=== PATIENT | male | born 1990 | race Caucasian/White ===

== ENCOUNTER 2016-05-29 19:53 | Emergency (ER) | payer SELFPAY ==
[2016-05-29 20:14] VITALS: BP 126/60
[2016-05-29] MEDS ORDERED: SULF5DRO EACHEYE (21:05)
--- NOTE | 2016-05-29 21:05 | PHYS DOC ---
Past Medical History Past Medical History: No Pertinent History Past Surgical History: No Surgical History Additional Information: Nonsmoker Alcohol Use: Occasionally Drug Use: Marijuana Adult General Chief Complaint Chief Complaint: EYE PROBLEMS HPI HPI Patient is a 25 year old male who presents with bilateral eye irritation starting today. He reports that both eyes are red and they were matted this morning when he awoke. He is also recently had nasal congestion, sore throat, and productive cough. He denies any vision changes, eye pain, or photophobia with eye irritation. He has not had any ear pain or shortness of breath. Patient denies any injury to his eyes. He does not wear contact lenses. He does not have a PCP. Review of Systems Review of Systems Constitutional: Denies fever or chills. [] Eyes: Denies change in visual acuity or eye pain. Reports bilateral eye redness and drainage. HENT: Denies ear pain. Reports nasal congestion and sore throat. Respiratory: Denies shortness of breath. Reports productive cough. Cardiovascular: Denies chest pain, palpitations or edema. [] GI: Denies abdominal pain, nausea, vomiting, bloody stools or diarrhea. [] Musculoskeletal: Denies back pain or joint pain. [] Integument: Denies rash or skin lesions. [] Neurologic: Denies headache, focal weakness or sensory changes. [] All systems reviewed and negative unless otherwise stated in the HPI. Physical Exam Physical Exam Constitutional: Well developed, well nourished, no acute distress, non-toxic appearance. [] HENT: Normocephalic, atraumatic, bilateral external ears normal, oropharynx moist, no oral exudates, nose normal. Bilateral TMs without erythema or bulging. There is no posterior pharyngeal erythema or tonsillar edema. Bilateral nasal turbinates are swollen and erythematous. Eyes: PERRLA, EOMI. Bilateral conjunctival injection with purulent drainage in both eyes. Neck: Normal range of motion, no tenderness, supple, no stridor. [] Cardiovascular: Heart rate regular rhythm, no murmur [] Lungs & Thorax: Bilateral breath sounds clear to auscultation without wheezes, rales, or rhonchi. Skin: Warm, dry, no erythema, no rash. [] Neurologic: Alert and oriented X 3, normal motor function, normal sensory function, no focal deficits noted. [] Psychologic: Affect normal, judgement normal, mood normal. [] Current Patient Data Vital Signs Vital Signs Date Time Temp Pulse Resp B/P Pulse Ox O2 Delivery O2 Flow Rate FiO2 05/29/16 20:14 97.8 83 12 99 Room Air 0.1 97.8 EKG EKG [] Radiology/Procedures Radiology/Procedures [] Course & Med Decision Making Course & Med Decision Making Pertinent Labs and Imaging studies reviewed. (See chart for details) [] Dragon Disclaimer Dragon Disclaimer This electronic medical record was generated, in whole or in part, using a voice recognition dictation system. Departure Departure Impression: Primary Impression: URI (upper respiratory infection) Additional Impression: Conjunctivitis Disposition: HOME, SELF-CARE Condition: STABLE Referrals: BAUTISTA NAYLOR MD Patient Instructions: Conjunctivitis (Viral and Bacterial), Upper Respiratory Infection, Adult, [id number] Additional Instructions: Please use the prescribed antibiotic eyedrops as directed for one week. Please take Tylenol or Motrin for fever or pain. Drink plenty of water to stay hydrated. Get lots of rest. Please follow-up with a primary care provider if your symptoms continue. Please follow-up with the eye doctor listed below if you have changes in your vision or other problems with your eyes. Return to the emergency department if you have any new or concerning symptoms. Scripts Sulfacetamide Sodium (Bleph-10)5 Ml Drops2 Drop EACHEYE TID 7 Days Prov:LIDIA AG 05/29/16 Problem Qualifiers Primary Impression: URI (upper respiratory infection) URI type: unspecified viral URI Qualified Code: J06.9 - Acute upper respiratory infection, unspecified Additional Impression: Conjunctivitis Conjunctivitis type: acute Acute conjunctivitis type: viral Laterality: bilateral Qualified Code: B30.9 - Viral conjunctivitis, unspecified LIDIA AG May 29, 2016 21:06
== END 2016-05-29 21:35 | disposition home or self-care (01) ==
LOC: ER 19:53
DX: J06.9 Acute upper respiratory infection, unspecified (principal); H10.9 Unspecified conjunctivitis; F12.10 Cannabis abuse, uncomplicated
CPT/HCPCS: 99283

== ENCOUNTER 2018-07-20 22:25 | Emergency (ER) | payer SELFPAY ==
[~2018-07-20] VITALS: Ht 195.6 cm; Wt 90.7 kg
[~2018-07-20 22:25] MED LIST: SULF5DRO EACHEYE
[2018-07-20 22:48] VITALS: BP 132/86
[2018-07-20] MEDS ORDERED: ONDANSETRON PF 4 MG/2 ML VIAL. ONE (22:50)
[2018-07-20] MEDS ORDERED: MORPHINE SULFATE 4 MG/ML VIAL. ONE (22:51)
[2018-07-20] MEDS ORDERED: MORPHINE SULFATE 4 MG/ML VIAL. IV ONE (23:00)
[2018-07-20] MEDS ORDERED: ONDANSETRON PF 4 MG/2 ML VIAL. IV ONE (23:00)
[2018-07-20] MEDS ORDERED: RABIES VIRUS VACC PF 2.5 UNIT / 1 ML VIAL. VAX IM ONE (23:30)
[2018-07-20] MEDS ORDERED: RABIES IMMUNE GLOBULIN PF 150 UNIT/ML 10ML VIAL. VAX IM ONE (23:30)
[2018-07-20] MEDS ORDERED: LIDOCAINE 1% Multi-Dose 20 ML VIAL. INJ ONE (23:30)
[2018-07-21] MEDS ORDERED: MORPHINE SULFATE 4 MG/ML VIAL. IV ONE (00:30)
[2018-07-21] MEDS ORDERED: AMOXICILLIN/K CLAV 875/125MG TABLET. PO ONE (00:30)
--- NOTE | 2018-07-21 01:04 | PHYS DOC ---
Past Medical History Past Medical History: No Pertinent History Past Surgical History: No Surgical History Alcohol Use: Occasionally Drug Use: Marijuana Adult General Chief Complaint Chief Complaint: ANIMAL BITE HPI HPI Patient is a 28 year old male who presents with dog bites to his left leg, hand , and right leg. The left leg is the worst. He has been able to walk on it. Patient is uncertain as to his tetanus status. This was a full-grown dog. Dog is not in anyone's possession. There is no numbness or tingling or pulsatile bleeding. There was no loss of consciousness.[] Review of Systems Review of Systems Constitutional: Denies fever or chills [] Eyes: Denies change in visual acuity, redness, or eye pain [] HENT: Denies nasal congestion or sore throat [] Respiratory: Denies cough or shortness of breath [] Cardiovascular: No chest pain or palpitations[] GI: Denies abdominal pain, nausea, vomiting, bloody stools or diarrhea [] : Denies dysuria or hematuria [] Musculoskeletal: Denies back pain or joint pain [] Integument: Denies rash, see history of present illness[] Neurologic: Denies headache, focal weakness or sensory changes [] Endocrine: Denies polyuria or polydipsia [] All other systems were reviewed and found to be within normal limits, except as documented in this note. Current Medications Current Medications Current Medications Medications (Trade) Dose Ordered Sig/John Start Time Stop Time Status Last Admin Dose Admin Amoxicillin/ Clavulanate Potassium (Augmentin 875/ 125mg) 1 tab 1X ONCE 07/21/18 00:30 07/21/18 00:31 DC Bacitracin 1 jordan 1X ONCE 07/21/18 01:30 07/21/18 01:31 DC Lidocaine HCl (Lidocaine 1% 20ml Vial) 20 ml 1X ONCE 07/21/18 01:30 07/21/18 01:31 DC Morphine Sulfate (Morphine Sulfate) 4 mg 1X ONCE 07/21/18 00:30 07/21/18 00:31 DC 07/21/18 00:15 4 MG Ondansetron HCl (Zofran) 4 mg STK-MED ONCE 07/20/18 22:50 07/20/18 22:51 DC Rabies Immune Globulin (Imogam Rabies) 12 ml ONCE ONCE 07/20/18 23:30 07/20/18 23:31 DC 07/20/18 23:04 12 ML Rabies Vaccine Human Diploid Cell (Imovax Rabies 2.5 Unit / ml) 1 ml ONCE ONCE 07/20/18 23:30 07/20/18 23:31 DC 07/20/18 23:06 1 ML Allergies Allergies Allergies Coded Allergies Type Severity Reaction Last Updated Verified No Known Drug Allergies 07/20/18 No Physical Exam Physical Exam Constitutional: Well developed, well nourished, moderate distress, non-toxic appearance. [] HENT: Normocephalic, atraumatic, bilateral external ears normal, oropharynx moist, no oral exudates, nose normal. [] Eyes: PERRLA, EOMI, conjunctiva normal, no discharge. [] Neck: Normal range of motion, no tenderness, supple, no stridor. [] Cardiovascular:Heart rate regular rhythm, no murmur [] Lungs & Thorax: Bilateral breath sounds clear to auscultation [] Abdomen: Bowel sounds normal, soft, no tenderness, no masses, no pulsatile masses. [] Skin: Warm, dry, no erythema, no rash. Patient's right hand has multiple superficial wounds, none of which are suturable. Patient has full active range of motion of the right hand, FDS, FDP, and extensor mechanisms are intact, patient is distal neurovascularly intact. Patient's right calf has an abrasion, no suturable wound. Patient's left calf lateral aspect has a 7 cm wound with no muscle or bone visible. No visible foreign body. Patient's medial left calf has 2 suturable wounds, the superior is stellate and a proximally 5 cm in size, the inferior was curved an approximately 4 cm in size, neither of the medial wounds had any foreign body nor muscle nor bone visible.[] Back: No tenderness, no CVA tenderness. [] Extremities: No tenderness, no cyanosis, no clubbing, ROM intact, no edema. [] Neurologic: Alert and oriented X 3, normal motor function, normal sensory function, no focal deficits noted. [] Psychologic: Affect normal, judgement normal, mood normal. [] Current Patient Data Vital Signs Vital Signs Date Time Temp Pulse Resp B/P (MAP) Pulse Ox O2 Delivery O2 Flow Rate FiO2 07/21/18 00:15 20 99 Room Air 07/20/18 22:48 98.2 100 132/86 (101) 98.2 EKG EKG [] Radiology/Procedures Radiology/Procedures [] Course & Med Decision Making Course & Med Decision Making Pertinent Labs and Imaging studies reviewed. (See chart for details) ED course and medical decision making: Patient arrived, was placed in bed, in tolerated exam well. Given the dog was not available he was given rabies immunoglobulin as well as rabies vaccine. He was additionally given Augmentin. There is no evidence of a foreign body. No evidence of neuro or vascular compromise. He had the sutures repaired by my nurse practitioner. He was discharged in improved condition.[] Dragon Disclaimer Dragon Disclaimer This electronic medical record was generated, in whole or in part, using a voice recognition dictation system. Departure Departure Impression: Primary Impression: Dog bite Disposition: HOME, SELF-CARE Condition: IMPROVED Referrals: NO PCP (PCP) Patient Instructions: Animal Bite, Rabies Immune Globulin, human RIG solution for injection, Rabies Vaccine suspension for injection, Sutured Wound Care Additional Instructions: Follow-up with your regular doctor in 2 days. If you do not have regular doctor list of local clinics will be provided for you. Sutures out in 10-14 days. Return to the ER if worsening pain, redness, purulent drainage, or any other concerns. You need to complete the rabies vaccine series, the next one is in 3 days on July 24, then on July 28, and August 04 for the last one Scripts Hydrocodone/Apap 5-325 (NORCO 5-325 TABLET) 1 Each Tablet 1-2 EACH PO PRN Q6HRS PRN for SEVERE PAIN, #15 as needed for pain Prov: KRZYSZTOF BRADLEY DO 07/21/18 Meloxicam (MELOXICAM) 7.5 Mg Tablet 7.5 MG PO DAILY, #20 TAB Prov: KRZYSZTOF BRADLEY DO 07/21/18 Amoxicillin/Potassium Clav (AUGMENTIN 875-125 TABLET) 1 Each Tablet 1 TAB PO BID, #20 TAB Prov: KRZYSZTOF BRADLEY DO 07/21/18 Laceration Repair Lac Repair Indication: [] Procedure: The patient was placed in the appropriate position and anesthesia around the superior medial wound 1% lidocaine, 6 mL. the area was then irrigated. The laceration was closed with 7 simple interrupted sutures, 3-0 Ethilon. Inferior medial LAC was anesthetized with 1% lidocaine, 6 mL. This laceration was closed with 3, 3-0 Ethilon simple interrupted sutures. The wound on the lateral aspect of the left calf was anesthetized with 1% lidocaine, 13 mL. The wound was irrigated. It was then closed with 3-0 Ethilon simple interrupted sutures, #13. The wound area was then dressed with bacitracin and nonadherent dressings. Total repaired wound length: 16 cm among the 3 wounds. Other Items: [OTHER ITEMS] The patient tolerated the procedure well. Hemostasis was achieved. Complications: None. Problem Qualifiers Primary Impression: Dog bite Encounter type: initial encounter Qualified Codes: W54.0XXA - Bitten by dog , initial encounter KRZYSZTOF BRADLEY DO Jul 21, 2018 01:04
[2018-07-21] MEDS ORDERED: BACITRACIN TOPICAL OINT 14GM TUBE. TP ONE (01:30)
[2018-07-21] MEDS ORDERED: LIDOCAINE 1% Multi-Dose 20 ML VIAL. INJ ONE (01:30)
[2018-07-21] MEDS ORDERED: MELO7.5T29 PO (02:08)
[2018-07-21] MEDS ORDERED: AMOX1TAB61 PO (02:08)
[2018-07-21] MEDS ORDERED: HYDR-3164 PO (02:08)
== END 2018-07-21 02:20 | disposition home or self-care (01) ==
LOC: ER 22:25
DX: S81.812A Laceration without foreign body, left lower leg, initial encounter (principal); S80.811A Abrasion, right lower leg, initial encounter; W54.0XXA Bitten by dog, initial encounter; Y93.89 Activity, other specified; Y92.89 Other specified places as the place of occurrence of the external cause; Y99.8 Other external cause status
CPT/HCPCS: 12005; 90375; 90471; 90675; 96372; 96374; 96375; 96376; 99284; J2270; J2405; 99283

== ENCOUNTER 2018-08-06 11:41 | Emergency (ER) | payer SELFPAY ==
[~2018-08-06] VITALS: Ht 193 cm; Wt 93.0 kg
[~2018-08-06 11:41] MED LIST changes: +AMOX1TAB61 PO; +HYDR-3164 PO; +MELO7.5T29 PO
[2018-08-06 13:02] VITALS: BP 122/60
--- NOTE | 2018-08-06 14:59 | PHYS DOC ---
Past Medical History Past Medical History: No Pertinent History Past Surgical History: No Surgical History Alcohol Use: Occasionally Drug Use: Marijuana Adult General Chief Complaint Chief Complaint: SUTURE/STAPLE REMOVAL HPI HPI Patient is a 28 year old [male here for suture removal from a dog bite 2 weeks ago Allergies Allergies Allergies Coded Allergies Type Severity Reaction Last Updated Verified No Known Drug Allergies 08/06/18 No Physical Exam Physical Exam Constitutional: Well developed, well nourished, no acute distress, non-toxic appearance. [] HENT: Normocephalic, atraumatic, bilateral external ears normal, oropharynx moist, no oral exudates, nose normal. [] ] Skin: 2 healed lacerations on the leg sutures in place some scabbing noted overlying Extremities: No tenderness, no cyanosis, no clubbing, ROM intact, no edema. [] Neurologic: Alert and oriented X 3, normal motor function, normal sensory function, no focal deficits noted. [] Psychologic: Affect normal, judgement normal, mood normal. [] Current Patient Data Vital Signs Vital Signs Date Time Temp Pulse Resp B/P (MAP) Pulse Ox O2 Delivery O2 Flow Rate FiO2 08/06/18 13:02 97.9 56 16 122/60 (80) 100 Room Air 97.9 EKG EKG [] Radiology/Procedures Radiology/Procedures [] Course & Med Decision Making Course & Med Decision Making Pertinent Labs and Imaging studies reviewed. (See chart for details) []sutures removed by 4 lara no comlpications 20 were removed. pt reassured [place] Disclaimer Dragon Disclaimer This electronic medical record was generated, in whole or in part, using a voice recognition dictation system. Departure Departure Impression: Primary Impression: Visit for suture removal Disposition: 01 HOME, SELF-CARE Condition: STABLE Patient Instructions: Suture Removal-Brief SHMUEL MANCERA MD Aug 06, 2018 14:59
== END 2018-08-06 13:33 | disposition home or self-care (01) ==
LOC: ER 11:41
DX: S81.812D Laceration without foreign body, left lower leg, subsequent encounter (principal); W54.0XXD Bitten by dog, subsequent encounter
CPT/HCPCS: 99281